=== PATIENT | female | born 1975 | race Caucasian/White ===

== ENCOUNTER → 2017-07-27 | Outpatient (CLI) | payer BC ==
[~2017-07-27] MED LIST: ACET-789 PO; ALPR0.25 PO; CHOL500049 PO; CNC1KV IJ; CYCL10TA9 PO; DOCU100C37 PO; GADOBUTROL 10 MMOL/10 ML (GADAVIST) VIAL IV ONE; HYDR200T46 PO; IBUP-1773 PO; IRON150C10 PO; LEVO75TA6 PO; LEVO88TA54 PO; LIOT5TAB3 PO; MAGN400T6 PO; NAPR-915 PO; NEBI5TAB8 PO; NFNEB10T PO; OXYC-465 PO; OXYC-471 PO; POTA-51 PO; SIME80TA16 PO
--- NOTE | 2017-07-27 10:16 | Diagnostic Imaging Report ---
PROCEDURE: MR imaging of the brain with and without contrast. TECHNIQUE: Multiplanar, multisequence MR imaging of the brain was performed with and without contrast. INDICATION: Headaches and forgetfulness for six months. COMPARISON: Comparison is made with prior MRI brain from 10/18/2015. FINDINGS: The ventricles and sulci are within normal limits. No diffusion restriction is seen. Normal expected flow-voids within the carotid siphons are seen. No acute intra-axial or extra-axial hemorrhage is detected. The corpus callosum is unremarkable. The sella and parasellar structures are unremarkable. No abnormal enhancement following contrast administration is seen. IMPRESSION: Unremarkable pre-and postcontrast MRI of the brain. Dictated by: Dictated on workstation # [id number]
== END ==
LOC: RAD 08:32
PROVIDERS: ATTEND Nurse Practitioner Family
DX: R51 Headache (principal); R41.3 Other amnesia; R20.2 Paresthesia of skin
CPT/HCPCS: 70553

== ENCOUNTER → 2018-02-16 | Outpatient (CLI) | payer BC ==
[~2018-02-16] MED LIST changes: -GADOBUTROL 10 MMOL/10 ML (GADAVIST) VIAL IV ONE
--- NOTE | 2018-02-16 14:05 | Diagnostic Imaging Report ---
PROCEDURE: US Renal Bilateral. TECHNIQUE: Multiple real-time grayscale images were obtained over the kidneys in various projections bilaterally. INDICATION: Flank pain. COMPARISON: There are no prior studies available for comparison. FINDINGS: Both kidneys were identified. The right kidney measures 9.6 x 4.8 x 5.5 cm while the left kidney is estimated to be 10.0 x 5.2 x 5.7 cm. There is no evidence for solid renal mass or for hydronephrosis of either kidney. However, there is a small 1.5 x 1.2 x 1.4 cm avascular hypoechoic lesion with some internal echoes within the left kidney. I suspect that this is a cyst which has been complicated by infection and/or hemorrhage. In reviewing the previous CT chest, abdomen, and pelvis exam of 12/22/2013, this finding was not clearly evident. The prior exam did note nonobstructive calculi within the left kidney. Those are not visualized with certainty on this exam. If further evaluation of the left kidney is desired, then repeat CT abdomen/pelvis exam would be recommended. There is no shadowing from the kidneys to suggest nephrolithiasis. The renal cortices are normal in thickness and echogenicity. The bladder was imaged during the course of the exam. The bladder is only partially filled and consequently not optimally evaluated. There is no obvious bladder abnormality evident. Both ureteral jets were noted. IMPRESSION: 1. There is no evidence for solid renal mass or for an acute abnormality of either kidney. 2. The small 1.5 x 1.2 x 1.4 cm complex hypoechoic lesion within the left kidney is probably a cyst which has been complicated by infection and/or hemorrhage. Recommendations as above. 3. The urinary bladder is grossly unremarkable. Dictated by: Dictated on workstation # [id number]
== END ==
LOC: RAD 11:19
PROVIDERS: ATTEND Nurse Practitioner Family
DX: N28.89 Other specified disorders of kidney and ureter (principal); R10.9 Unspecified abdominal pain
CPT/HCPCS: 76770

== ENCOUNTER → 2018-02-25 | Outpatient (CLI) | payer BC ==
[~2018-02-25] MED LIST changes: +IOHEXOL 350 MG/ML 100 ML (OMNIPAQUE 350) VIAL IV ONE; +NS 250 ML (IVPB) BAG IV ONE; +RECEIVED CONTRAST (Hold Metformin) IV SCH
--- NOTE | 2018-02-25 09:17 | Diagnostic Imaging Report ---
PROCEDURE: CT abdomen and pelvis with and without contrast. TECHNIQUE: Precontrast acquisitions were acquired through the abdomen and pelvis. Multiple contiguous axial images were obtained through the abdomen and pelvis after the administration of intravenous contrast. INDICATION: Fall last week and flank pain. Patient had abnormal renal ultrasound on 02/16/2018 demonstrating a left renal mass. The study is performed for further evaluation. Correlation is made with recent renal ultrasound from 02/16/2018. The lung bases are clear. The liver demonstrates diffuse low-density suggestive of hepatic steatosis. There appears to be hyperenhancing lesion in the right lobe of the liver near the dome measuring 9 mm in size. This was not definitely seen on prior CT from 2013. No other liver masses are identified. The gallbladder is unremarkable. The pancreas and spleen are unremarkable. No adrenal mass is detected. Bilateral nonobstructing renal calculi are seen. Largest calculus is in the lower pole left kidney measuring approximately 6 mm. No hydronephrosis is identified. Both kidneys contain multiple small circumscribed lesions which are too small to characterize but most likely represent cysts. The largest approximately 11 mm in the mid left kidney. It is difficult to determine if there is enhancement within this lesion, as the lesion is not visible on the precontrast images. The aorta is non-aneurysmal. No central retroperitoneal or mesenteric lymphadenopathy is seen. The small and large bowel loop are normal in caliber. There is no ascites. The partially filled urinary bladder is unremarkable. No pelvic lymphadenopathy is seen. IMPRESSION: 1. Hepatic steatosis. There is a 9 mm circumscribed enhancing lesion involving the right lobe of liver, not entirely characterized as benign or malignant. This does not have the typical features of a hemangioma. Close followup is recommended. Repeat CT in 3-6 months can be performed to confirm stability. 2. Bilateral nonobstructing nephrolithiasis. There are numerous tiny low densities in both kidneys, too small to characterize but most likely cysts. These can be followed as well to confirm stability. Dictated by: Dictated on workstation # [id number]
== END ==
LOC: RAD 08:07
PROVIDERS: ATTEND Nurse Practitioner Family
DX: K76.0 Fatty (change of) liver, not elsewhere classified (principal); N20.0 Calculus of kidney; N28.89 Other specified disorders of kidney and ureter; W19.XXXA Unspecified fall, initial encounter
CPT/HCPCS: 74178

== ENCOUNTER 2018-03-15 14:55 | Outpatient (CLI) | payer BC ==
[~2018-03-15] VITALS: Ht 162.6 cm; Wt 94.4 kg
[~2018-03-15 14:55] MED LIST changes: -IOHEXOL 350 MG/ML 100 ML (OMNIPAQUE 350) VIAL IV ONE; -NS 250 ML (IVPB) BAG IV ONE; -RECEIVED CONTRAST (Hold Metformin) IV SCH
[2018-03-15] MEDS ORDERED: METH5TAB86 PO (15:13)
[2018-03-15] MEDS ORDERED: ESZO2TAB31 PO (15:13)
[2018-03-15] MEDS ORDERED: BUSP10TA95 PO (15:13)
[2018-03-15] MEDS ORDERED: NAPR-1071 PO (15:13)
[2018-03-15] MEDS ORDERED: LEVO100T7 PO (15:13)
[2018-03-15] MEDS ORDERED: ESTR1TAB24 PO (15:13)
[2018-03-15] MEDS ORDERED: DICL100G31 TP (15:13)
[2018-03-15] MEDS ORDERED: PROG100C6 PO (15:13)
[2018-03-15] MEDS ORDERED: NFNEB10T PO (15:13)
[2018-03-15] MEDS ORDERED: GABA-488 PO (15:13)
[2018-03-15 15:16] VITALS: BP 152/94
[2018-03-15 16:06] LABS: BASOPHILS % (AUTO) 1 % (0-10); EOSINOPHILS # (AUTO) 0.1 10^3/uL (0.0-0.3); EOSINOPHILS % (AUTO) 1 % (0-10); HEMATOCRIT 38 % (35-52); HEMOGLOBIN 12.9 G/DL (11.5-16.0); LYMPHOCYTES # (AUTO) 1.7 X 10^3 (1.0-4.0); LYMPHOCYTES % (AUTO) 20 % (12-44); MEAN CORPUSCULAR HEMOGLOBIN 29 PG (25-34); MEAN CORPUSCULAR HGB CONC 34 G/DL (32-36); MEAN CORPUSCULAR VOLUME 86 FL (80-99); MEAN PLATELET VOLUME 9.7 FL (7.4-10.4); MONOCYTES # (AUTO) 0.7 X 10^3 (0.0-1.0); MONOCYTES % (AUTO) 9 % (0-12); NEUTROPHILS # (AUTO) 5.8 X 10^3 (1.8-7.8); NEUTROPHILS % (AUTO) 70 % (42-75); PLATELET COUNT 270 10^3/uL (130-400); WHITE BLOOD COUNT 8.4 10^3/uL (4.3-11.0)
[2018-03-15 16:23] LABS: BUN/CREATININE RATIO 14; CALCIUM 9.5 MG/DL (8.5-10.1); CARBON DIOXIDE 23 MMOL/L (21-32); CHLORIDE 101 MMOL/L (98-107); CREATININE SERUM 0.77 MG/DL (0.60-1.30); GFR ESTIMATED > 60; GLUCOSE 80 MG/DL (70-105); PHOSPHORUS 3.2 MG/DL (2.3-4.7); POTASSIUM 4.3 MMOL/L (3.6-5.0); SODIUM 136 MMOL/L (135-145); URIC ACID 4.4 MG/DL (2.6-7.2)
[2018-03-16] MEDS ORDERED: NITR-65 PO (12:05)
[2018-03-16] MEDS ORDERED: TAMS0.4C98 PO (12:05)
[2018-03-16] MEDS ORDERED: HYDR-3870 PO (12:05)
== END 2018-03-15 16:40 | disposition home or self-care (01) ==
LOC: PREOP 14:55
PROVIDERS: ATTEND Urology
DX: Z01.812 Encounter for preprocedural laboratory examination (principal); Z11.2 Encounter for screening for other bacterial diseases; N20.0 Calculus of kidney
CPT/HCPCS: 36415; 80048; 83970; 84100; 84550; 85025; 87081

== ENCOUNTER 2018-03-16 07:20 | Day surgery (SDC) | payer BC ==
[~2018-03-16] VITALS: Ht 162.6 cm; Wt 94.4 kg
[2018-03-16 07:20] VITALS: BP 158/94
[~2018-03-16 07:20] MED LIST changes: +BUSP10TA95 PO; +DICL100G31 TP; +ESTR1TAB24 PO; +ESZO2TAB31 PO; +GABA-488 PO; +LEVO100T7 PO; +METH5TAB86 PO; +NAPR-1071 PO; +PROG100C6 PO
[2018-03-16] MEDS ORDERED: LACTATED RINGERS 1,000 ML IV PRN (07:29)
[2018-03-16] MEDS ORDERED: cefTRIAXone FOR IV USE 1,000 MG in NS (IVPB) 50 ML IV ONE (07:30)
--- NOTE | 2018-03-16 08:59 | Progress Note-Pre Operative ---
Pre-Operative Progress Note H&P Reviewed The H&P was reviewed, patient examined and no changes noted. Date Seen by Provider: Mar 16, 2018 Time Seen by Provider: 08:58 Date H&P Reviewed: Mar 16, 2018 Time H&P Reviewed: 08:58 Pre-Operative Diagnosis: LT RENAL STONES MILAGROS KINCAID MD Mar 16, 2018 08:59
[2018-03-16] MEDS ORDERED: proPOfol 200 MG/20 ML (DIPRIVAN) VIAL IV ONE (10:03)
[2018-03-16] MEDS ORDERED: SEVOFLURANE (ULTANE) 15 ML INHAL SOLN ONE (10:03)
[2018-03-16] MEDS ORDERED: MIDAZOLAM 2 MG/2 ML (VERSED) VIAL ONE (10:03)
[2018-03-16] MEDS ORDERED: LIDOCAINE PF 2% 5 ML (XYLOCAINE) VIAL ONE (10:03)
[2018-03-16] MEDS ORDERED: fentaNYL INJECTION 100 MCG/2 ML AMP ONE (10:03)
--- NOTE | 2018-03-16 10:12 | Diagnostic Imaging Report ---
INDICATION: Bilateral renal stones. TECHNIQUE: Single supine view of the abdomen 7:57 AM. CORRELATION STUDY: 06/15/2015 FINDINGS: Nonobstructive appearing bowel gas pattern. Superior pole of the kidneys likely not included in the areas imaged. There are multiple calcifications over the bilateral renal silhouettes, left greater than right. Largest stone appears to be superimposed over the inferior pole of the left kidney at 7 mm in size. A definitive calcification along the expected course of either ureter does not appear to be suggested. IMPRESSION: 1. Likely incomplete visualization of the superior poles of the kidneys. Multiple calcifications of various sizes from a few millimeters up to 7 mm are present over both kidneys, left greater than right. Dictated by: Dictated on workstation # [id number]
--- NOTE | 2018-03-16 10:34 | Progress Note-Post Operative ---
Post-Operative Progess Note Surgeon (s)/Laboratory Mechanic Helper (s) Surgeon MILAGROS KINCAID MD Laboratory Mechanic Helper: NONE Pre-Operative Diagnosis LT RENAL STONES Post-Operative Diagnosis SAME Procedure & Operative Findings Date of Procedure 03/16/18 Procedure Performed/Findings LT ESWL Anesthesia Type GENERAL Estimated Blood Loss Estimated blood loss (mL): NONE Specimens/Packing Specimens Removed NONE Packing: NONE MILAGROS KINCAID MD Mar 16, 2018 10:34
--- NOTE | 2018-03-16 10:36 | Discharge Inst-Urology ---
Discharge Inst-Urology Discharge Medications New, Converted, or Re-newed RX: RX on Chart Patient Instructions/Follow Up Plan Please make appointment to been seen in office in 4 weeks. KUB prior to it KUB on way home Post ESWL instructions Increase oral fluids for 48 hours and then as needed. Diet and Activity as tolerated. If questions or concerns contact your physician Or seek help at emergency department. MILAGROS KINCAID MD Mar 16, 2018 10:36
[2018-03-16] MEDS ORDERED: DEXAMETHASONE 10 MG/ML (DECADRON) 1 ML VIAL ONE (10:51)
[2018-03-16] MEDS ORDERED: FUROSEMIDE 40 MG/4 ML INJ (LASIX) ONE (10:51)
[2018-03-16] MEDS ORDERED: ONDANSETRON 4 MG/2 ML (SDV) Z0FRAN ONE (10:51)
[2018-03-16] MEDS ORDERED: KETOROLAC 30 MG/ML VIAL ONE (10:51)
[2018-03-16] MEDS ORDERED: ONDANSETRON 4 MG/2 ML (SDV) Z0FRAN IVP PRN (11:15)
[2018-03-16] MEDS ORDERED: MEPERIDINE (DEMEROL) INJ 50 MG/ML IVP ONE (11:15)
[2018-03-16] MEDS ORDERED: morphine INJ 10 MG/ML 1ML (SYR OR VIAL) IVP ONE (11:15)
[2018-03-16 11:45] VITALS: BP 117/66
[2018-03-16] MEDS ORDERED: NITR-65 PO (12:05)
[2018-03-16] MEDS ORDERED: HYDR-3870 PO (12:05)
[2018-03-16] MEDS ORDERED: TAMS0.4C98 PO (12:05)
[2018-03-16 12:15] VITALS: BP 138/99
[2018-03-16 12:45] VITALS: BP 141/88
[2018-03-16 12:50] VITALS: BP 141/88
--- NOTE | 2018-03-16 13:52 | Diagnostic Imaging Report ---
INDICATION: Status post ESWL. COMPARISON: Earlier same day. FINDINGS: Two supine radiographic views of the abdomen were obtained. Bilateral nephrolithiasis is again identified. Calculi in the inferior pole of the left kidney do appear somewhat more amorphous when compared to earlier the same day. Otherwise, exam is essentially stable. No calculi are seen along the course of either ureter. Small bowel loops are nondistended. No unexpected radiopaque foreign bodies are seen. IMPRESSION: 1. Slightly more amorphous appearance to the calculi within the inferior pole of the left kidney, which may be on the basis of interval ESWL. 2. Otherwise, stable exam. Dictated by: Dictated on workstation # [id number]
--- NOTE | 2018-03-16 14:40 | Anesthesia-General Post-Op ---
General Patient Condition Mental Status/LOC: Same as Preop Cardiovascular: Satisfactory Nausea/Vomiting: Absent Respiratory: Satisfactory Pain: Controlled Complications: Absent Post Op Complications Complications None Follow Up Care/Instructions Patient Instructions None needed. Anesthesia/Patient Condition Patient Condition Patient is doing well, no complaints, stable vital signs, no apparent adverse anesthesia problems. No complications reported per nursing. ANABELA SCHMITT CRNA Mar 16, 2018 14:40
--- NOTE | 2018-03-16 15:35 | OPERATIVE REPORT ---
DATE OF SERVICE: 03/16/2018 PREOPERATIVE DIAGNOSIS: Left renal stones. POSTOPERATIVE DIAGNOSIS: Left renal stones. OPERATION PERFORMED: Left ESWL. SURGEON: Ar Kincaid MD ANESTHESIA: General. COMPLICATIONS: None. DESCRIPTION OF PROCEDURE: Under satisfactory general anesthesia, the patient in supine position on the ESWL table, we first localized the bigger lower pole stone. Delivered shocks at kV of 4, 1500 shocks seemed to have fragmented nicely the stone, then we moved on the upper pole stone and delivered 2000 shocks to completely fragment it. I went back to the lower stone and delivered 500 more shocks just to make sure that it is well fragmented. The patient tolerated the procedure and anesthesia well and was sent to recovery room in stable condition after receiving 40 mg of Lasix and 30 mg of Toradol IV. Job ID: [id number] DocumentID: [id number] Dictated Date: 03/16/2018 10:51:02 Bridge Ironworker Date: 03/16/2018 15:35:38 Dictated By: AR KINCAID MD
== END 2018-03-16 12:50 | disposition home or self-care (01) ==
LOC: SDC 07:20
PROVIDERS: ATTEND Urology
DX: N20.0 Calculus of kidney (principal); I10 Essential (primary) hypertension; Z79.899 Other long term (current) drug therapy
CPT/HCPCS: 74018

== ENCOUNTER → 2018-04-13 | Outpatient (CLI) | payer BC ==
[~2018-04-13] MED LIST changes: +HYDR-3870 PO; +NITR-65 PO; +TAMS0.4C98 PO
--- NOTE | 2018-04-13 13:38 | Diagnostic Imaging Report ---
INDICATION: Left renal stone status post lithotripsy. TIME OF EXAMINATION: 12:23 PM. COMPARISON: Correlation is made with prior radiographs from 03/16/2018. FINDINGS: Occasional punctate calcific densities overlie the left kidney, consistent with kidney stones. The overall stone burden involving the left kidney has significantly decreased. No definite ureteral calculi are seen. No calculi in the pelvis are identified. The right renal shadow is obscured by bowel gas. IMPRESSION: Left renal calculi. The overall stone burden has decreased since the prior abdominal radiograph from 03/16/2018. No definite ureteral calculi are detected. Dictated by: Dictated on workstation # [id number]
== END ==
LOC: RAD 11:42
PROVIDERS: ATTEND Urology
DX: N20.0 Calculus of kidney (principal)
CPT/HCPCS: 74018

== ENCOUNTER 2018-04-27 10:18 | Outpatient (RCR) | payer BC | END 2018-07-26 | disposition home or self-care (01) | LOC: LAB 10:18 | PROVIDERS: ATTEND Urology | DX: N20.0 Calculus of kidney (principal); Z98.890 Other specified postprocedural states | CPT/HCPCS: 36415; 82140; 82340; 82507; 82570; 83735; 83945; 83986; 84105; 84133; 84300; 84392; 84560; 88300 ==

== ENCOUNTER → 2018-05-25 | Outpatient (CLI) | payer BC ==
[~2018-05-25] MED LIST changes: +IOHEXOL 350 MG/ML 100 ML (OMNIPAQUE 350) VIAL IV ONE; +NS 100 ML (IVPB) BAG IV ONE; +RECEIVED CONTRAST (Hold Metformin) IV SCH
--- NOTE | 2018-05-25 10:43 | Diagnostic Imaging Report ---
PROCEDURE: CT abdomen and pelvis with and without contrast. TECHNIQUE: Precontrast acquisitions were acquired through the abdomen and pelvis. Multiple contiguous axial images were obtained through the abdomen and pelvis after the administration of intravenous contrast. INDICATION: Liver mass. COMPARISON: Comparison made with prior examination 02/25/2018. FINDINGS: The heart size is normal. Lung bases are clear. There is persistent fatty infiltration of the liver. There is an unchanged hyperenhancing 9 mm lesion in the dome of the liver. The gallbladder is unremarkable. There is no biliary duct dilatation. Spleen is normal. The pancreas and adrenal glands are unremarkable. There are multiple nonobstructing bilateral renal calculi. Aorta is nonaneurysmal. Bowel gas pattern is nonspecific. The appendix is normal. There is no free air. There is no ascites. There are no focal inflammatory changes. Bladder is normal. There is no pelvic mass, adenopathy or free fluid. There are mild degenerative changes in the lower lumbar spine. IMPRESSION: 1. Stable 9 mm hyperenhancing lesion in the dome of the liver likely atypical hemangioma. 2. No other acute abnormality in the abdomen or pelvis. 3. Multiple nonobstructing bilateral renal calculi. Dictated by: Dictated on workstation # [id number]
== END ==
LOC: RAD 08:50
PROVIDERS: ATTEND Nurse Practitioner Family
DX: K76.9 Liver disease, unspecified (principal); N20.0 Calculus of kidney
CPT/HCPCS: 74178

== ENCOUNTER 2018-10-08 15:58 | Emergency (ER) | payer BC ==
[~2018-10-08] VITALS: Ht 165.1 cm; Wt 86.2 kg
[~2018-10-08 15:58] MED LIST changes: -IOHEXOL 350 MG/ML 100 ML (OMNIPAQUE 350) VIAL IV ONE; -NS 100 ML (IVPB) BAG IV ONE; -RECEIVED CONTRAST (Hold Metformin) IV SCH
[2018-10-08] MEDS ORDERED: NS IV 1000 ML 1,000 ML ONE (16:33)
[2018-10-08] MEDS ORDERED: NS IV 1000 ML 1,000 ML IV ONE (16:36)
[2018-10-08] MEDS ORDERED: NS IV 1000 ML 1,000 ML IV STA (16:36)
[2018-10-08 16:44] LABS: BASOPHILS % (AUTO) 1 % (0-10); EOSINOPHILS # (AUTO) 0.2 10^3/uL (0.0-0.3); EOSINOPHILS % (AUTO) 4 % (0-10); HEMATOCRIT 36 % (35-52); HEMOGLOBIN 12.7 G/DL (11.5-16.0); LYMPHOCYTES # (AUTO) 1.6 X 10^3 (1.0-4.0); LYMPHOCYTES % (AUTO) 26 % (12-44); MEAN CORPUSCULAR HEMOGLOBIN 29 PG (25-34); MEAN CORPUSCULAR HGB CONC 35 G/DL (32-36); MEAN CORPUSCULAR VOLUME 83 FL (80-99); MEAN PLATELET VOLUME 9.1 FL (7.4-10.4); MONOCYTES # (AUTO) 0.5 X 10^3 (0.0-1.0); MONOCYTES % (AUTO) 9 % (0-12); NEUTROPHILS # (AUTO) 3.8 X 10^3 (1.8-7.8); NEUTROPHILS % (AUTO) 61 % (42-75); PLATELET COUNT 259 10^3/uL (130-400); WHITE BLOOD COUNT 6.2 10^3/uL (4.3-11.0)
[2018-10-08] MEDS ORDERED: ONDANSETRON 4 MG/2 ML (SDV) Z0FRAN IVP ONE (16:45)
[2018-10-08 16:58] LABS: ALANINE AMINOTRANSFERASE 40 U/L (0-55); ALBUMIN 4.2 GM/DL (3.2-4.5); ALKALINE PHOSPHATASE 69 U/L (40-136); BILIRUBIN,TOTAL 0.6 MG/DL (0.1-1.0); BUN/CREATININE RATIO 11; CALCIUM 9.4 MG/DL (8.5-10.1); CARBON DIOXIDE 27 MMOL/L (21-32); CHLORIDE 105 MMOL/L (98-107); CREATININE SERUM 0.92 MG/DL (0.60-1.30); GFR ESTIMATED > 60; GLUCOSE 98 MG/DL (70-105); MAGNESIUM 1.7 MG/DL (1.8-2.4); POTASSIUM 3.7 MMOL/L (3.6-5.0); SODIUM 141 MMOL/L (135-145); TOTAL PROTEIN 7.2 GM/DL (6.4-8.2)
[2018-10-08] MEDS ORDERED: NS 100 ML (IVPB) BAG IV ONE (17:00)
[2018-10-08] MEDS ORDERED: CATHETER FLUSH 10 ML SYR IV PRN (17:00)
[2018-10-08] MEDS ORDERED: IOHEXOL 350 MG/ML 100 ML (OMNIPAQUE 350) VIAL IV ONE (17:00)
[2018-10-08] MEDS ORDERED: HOLD METFORMIN - RECEIVED CONTRAST 20 ML VIAL IV SCH (17:00)
--- NOTE | 2018-10-08 17:05 | ED Abdominal Pain ---
General Chief Complaint: Abdominal/GI Problems Stated Complaint: ABD PAIN,VOMITING Nursing Triage Note: Pt. advises abdominal pain and diarrhea since thursday. She advises that she saw her regular doctor on thursday and was given antibiotics and nausea medication. She states right upper and lower quadrant abdominal pain has become progressively worse. Sepsis Screen: No Definite Risk Source of Information: Patient Exam Limitations: No Limitations (SOFIA CONWAY MD) History of Present Illness Date Seen by Provider: Oct 08, 2018 Time Seen by Provider: 16:30 Initial Comments Here with report of right-sided abdominal pain associated with diarrhea since Thursday. Onset after eating a Thursday morning for breakfast. Has been persistent since. She was seen by her provider who went ahead and initiated treatment for possible salmonella due to eating unwashed [employer] fresh eggs. Denies fever. Denies bloody diarrhea. Denies dysuria. Pain much worse today after eating a taco for lunch. She states anytime she eats anything at a spicy at all it sets it off again. Timing/Duration: 4-5 Days Severity/Quality: Moderate, Cramping Location: RUQ, RLQ Radiation: Other (generalized abdomen) Activities at Onset: None Modifying Factors: Improves With Defecating; Worsens With Eating Associated Symptoms: No Back Pain, No Chest Pain, No Fever/Chills; Nausea/Vomiting; No Shortness of Air (SOFIA CONWAY MD) Allergies and Home Medications Allergies Coded Allergies: codeine (Verified Allergy, Severe, RASH, Pt has received Morphine & Lortab in the past, 10/08/18) Home Medications Buspirone HCl 10 Mg Tablet, 10 MG PO BID, (Reported) Cholecalciferol (Vitamin D3) 50,000 Unit Capsule, 50,000 UNIT PO twice weekly, (Reported) take on Thursday and Thursday Cyanocobalamin 1,000 Mcg/Ml Inj, 1,000 MCG IJ TWICE A WEEK, (Reported) take on Thursday and Thursday Diclofenac Sodium 100 Gm Gel..gram., 100 GM TP PRN, (Reported) Estradiol 1 Mg Tablet, 2 MG PO DAILY, (Reported) Eszopiclone 2 Mg Tablet, 2 MG PO DAILY, (Reported) Gabapentin 300 Mg Capsule, 300 MG PO BID, (Reported) Hydrocodone/Acetaminophen 1 Each Tablet, 1-2 EACH PO Q6H PRN for PAIN-MODERATE Prescribed by: MERCEDES QUAN on 03/16/18 1205 Hydroxychloroquine Sulfate 200 Mg Tablet, 200 MG PO BID, (Reported) Levothyroxine Sodium 100 Mcg Tablet, 100 MCG PO DAILY, (Reported) Magnesium Oxide 400 Mg Tablet, 400 MG PO DAILY, (Reported) Methylphenidate HCl 5 Mg Tablet, 5 MG PO BID, (Reported) Naproxen 500 Mg Tablet, 500 MG PO BID, (Reported) Nebivolol HCl 10 Mg Tab, 10 MG PO DAILY, (Reported) Nitrofurantoin Monohyd/M-Cryst 100 Mg Capsule, 1 TAB PO BID Prescribed by: MERCEDES QUAN on 03/16/18 1205 Potassium Chloride 20 Meq Tablet.er, 20 MEQ PO DAILY, (Reported) Progesterone,Micronized 100 Mg Capsule, 100 MG PO DAILY, (Reported) Tamsulosin HCl 0.4 Mg Cap, 0.4 MG PO DAILY Prescribed by: MERCEDES QUAN on 03/16/18 1205 Patient Home Medication List Home Medication List Reviewed: Yes (SOFIA CONWAY MD) Review of Systems Review of Systems Constitutional: see HPI EENTM: No Symptoms Reported Respiratory: No Symptoms Reported Cardiovascular: No Symptoms Reported Gastrointestinal: See HPI, Abdominal Pain, Diarrhea, Nausea, Vomiting Genitourinary: No Symptoms Reported Musculoskeletal: no symptoms reported Skin: no symptoms reported Psychiatric/Neurological: No Symptoms Reported (SOFIA COWNAY MD) All Other Systems Reviewed Negative Unless Noted: Yes (SOFIA CONWAY MD) Past Lrgkdbi-Pqvbsu-Nylyna Hx Past Med/Social Hx: Reviewed Nursing Past Med/Soc Hx (SOFIA CONWAY MD) Patient Social History Alcohol Use: Denies Use Recreational Drug Use: No Smoking Status: Never a Smoker Recent Foreign Travel: No Contact w/Someone Who Travel: No Recent Infectious Disease Expo: No Recent Hopitalizations: No (SOFIA CONWAY MD) Immunizations Up To Date Tetanus Booster (TDap): Unknown (SOFIA CONWAY MD) Seasonal Allergies Seasonal Allergies: No (SOFIA CONWAY MD) Past Medical History Surgeries: Yes (D&C) Section, Hysterectomy, Oophorectomy Respiratory: No Asthma Cardiac: Yes Heart Murmur, Hypertension Neurological: No Reproductive Disorders: No Female Reproductive Disorders: Menstrual Problems 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 Sexually Transmitted Disease: No HIV/AIDS: No Kidney Stones Gastrointestinal: Yes (CELIAC DISEASE) Musculoskeletal: Yes Arthritis, Rheumatoid Arthritis, Chronic Back Pain Endocrine: Yes (BEN) Loss of Vision: Bilateral Hearing Impairment: Denies Cancer: No Psychosocial: Yes Anxiety Integumentary: No Blood Disorders: No (HX ANEMIA) Adverse Reaction/Blood Tranf: No (N/A) (SFOIA CONWAY MD) Family Medical History Reviewed Nursing Family Hx (SOFIA CONWAY MD) Arthritis 19 MOTHER grandparents Cataracts 19 MOTHER Dementia grandparents Hypertension 19 MOTHER Thyroid disease 19 MOTHER Physical Exam Vital Signs Vital Signs - First Documented 10/08/18 16:27 Temp 98.8 Pulse 84 Resp 14 B/P (MAP) 150/93 (112) O2 Delivery Room Air (FORD JAEGER) Vital Signs Capillary Refill : Less Than 3 Seconds (SOFIA CONWAY MD) Height/Weight/BMI Height: 5'5.00" Weight: 190lbs. 3.0oz. 86.240481sm; 35.7 BMI Method:Stated General Appearance: WD/WN, no apparent distress HEENT: PERRL/EOMI, pharynx normal Neck: full range of motion, supple Respiratory: lungs clear, normal breath sounds Cardiovascular: regular rate, rhythm, no murmur Peripheral Pulses: 2+ Dorsalis Pedis (R), 2+ Left Dors-Pedis (L), 2+ Radial Pulses (R), 2+ Radial Pulses (L) Gastrointestinal: soft, tenderness (right lower quadrant and to a lesser extent right upper quadrant) Extremities: non-tender, normal inspection Back: normal inspection, no CVA tenderness, no vertebral tenderness Neurologic/Psychiatric: alert, oriented x 3 Skin: normal color, warm/dry (SOFIA CONWAY MD) Progress/Results/Core Measures Results/Orders Lab Results Laboratory Tests Test 10/08/18 16:35 10/08/18 17:16 Range/Units White Blood Count 6.2 4.3-11.0 10^3/uL Red Blood Count 4.39 4.35-5.85 10^6/uL Hemoglobin 12.7 11.5-16.0 G/DL Hematocrit 36 35-52 % Mean Corpuscular Volume 83 80-99 FL Mean Corpuscular Hemoglobin 29 25-34 PG Mean Corpuscular Hemoglobin Concent 35 32-36 G/DL Red Cell Distribution Width 14.0 10.0-14.5 % Platelet Count 259 130-400 10^3/uL Mean Platelet Volume 9.1 7.4-10.4 FL Neutrophils (%) (Auto) 61 42-75 % Lymphocytes (%) (Auto) 26 12-44 % Monocytes (%) (Auto) 9 0-12 % Eosinophils (%) (Auto) 4 0-10 % Basophils (%) (Auto) 1 0-10 % Neutrophils # (Auto) 3.8 1.8-7.8 X 10^3 Lymphocytes # (Auto) 1.6 1.0-4.0 X 10^3 Monocytes # (Auto) 0.5 0.0-1.0 X 10^3 Eosinophils # (Auto) 0.2 0.0-0.3 10^3/uL Basophils # (Auto) 0.0 0.0-0.1 10^3/uL Sodium Level 141 135-145 MMOL/L Potassium Level 3.7 3.6-5.0 MMOL/L Chloride Level 105 98-107 MMOL/L Carbon Dioxide Level 27 21-32 MMOL/L Anion Gap 9 5-14 MMOL/L Blood Urea Nitrogen 10 7-18 MG/DL Creatinine 0.92 0.60-1.30 MG/DL Estimat Glomerular Filtration Rate > 60 BUN/Creatinine Ratio 11 Glucose Level 98 70-105 MG/DL Calcium Level 9.4 8.5-10.1 MG/DL Corrected Calcium 9.2 8.5-10.1 MG/DL Magnesium Level 1.7 L 1.8-2.4 MG/DL Total Bilirubin 0.6 0.1-1.0 MG/DL Aspartate Amino Transf (AST/SGOT) 30 5-34 U/L Alanine Aminotransferase (ALT/SGPT) 40 0-55 U/L Alkaline Phosphatase 69 40-136 U/L C-Reactive Protein High Sensitivity 0.48 0.00-0.50 MG/DL Total Protein 7.2 6.4-8.2 GM/DL Albumin 4.2 3.2-4.5 GM/DL Urine Color YELLOW Urine Clarity CLEAR Urine pH 6 5-9 Urine Specific [place] 1.025 H 1.016-1.022 Urine Protein 2+ H NEGATIVE Urine Glucose (UA) NEGATIVE NEGATIVE Urine Ketones 1+ H NEGATIVE Urine Nitrite NEGATIVE NEGATIVE Urine Bilirubin NEGATIVE NEGATIVE Urine Urobilinogen 1 NORMAL MG/DL Urine Leukocyte Esterase 1+ H NEGATIVE Urine RBC (Auto) NEGATIVE NEGATIVE Urine RBC RARE /HPF Urine WBC RARE /HPF Urine Squamous Epithelial Cells 5-10 /HPF Urine Crystals PRESENT H /LPF Urine Calcium Oxalate Crystals RARE H /LPF Urine Bacteria FEW H /HPF Urine Casts NONE /LPF Urine Mucus MODERATE H /LPF Urine Culture Indicated NO (FORD JAEGER) Medications Given in ED Current Medications Medications Dose Ordered Sig/Garima Route Start Time Stop Time Status Last Admin Dose Admin Iohexol 100 ml ONCE ONCE IV 10/08/18 17:00 10/08/18 17:01 DC 10/08/18 17:31 100 ML Ondansetron HCl 4 mg ONCE ONCE IVP 10/08/18 16:45 10/08/18 16:46 DC 10/08/18 16:42 4 MG Sodium Chloride 10 ml NEEDED PRN IV 10/08/18 17:00 10/08/18 17:31 10 ML Sodium Chloride 100 ml ONCE ONCE IV 10/08/18 17:00 10/08/18 17:01 DC 10/08/18 17:31 80 ML Sodium Chloride 1,000 ml @ 0 mls/hr Q0M ONCE IV 10/08/18 16:36 10/08/18 16:39 DC 10/08/18 18:40 1,000 MLS/HR (FORD JAEGER) Vital Signs/I&O 10/08/18 16:27 Temp 98.8 Pulse 84 Resp 14 B/P (MAP) 150/93 (112) O2 Delivery Room Air (FORD JAEGER) Blood Pressure Mean: 112 Progress Progress Note : Progress Note Seen and evaluated. IV, labs, UA, normal saline 1 L bolus, Zofran 4 mg IV, CT abdomen pelvis ordered. Monitor patient. (SOFIA OCNWAY MD) Diagnostic Imaging Diagonstic Imaging: CT (IV contrast) Plain Films/CT/US/NM/MRI: abdomen, pelvis Comments NAME: TIFFANY ESCALANTE [facility] REC#: [id number] PT STATUS: REG ER : 1975 PHYSICIAN: SOFIA CONWAY MD ADMIT DATE: 10/08/18/ER Draft Date of Exam:10/08/18 CT ABDOMEN/PELVIS W EXAMINATION: CT abdomen and pelvis with contrast from 10/08/2018. TECHNIQUE: Multiple contiguous axial images were obtained through the abdomen and pelvis after administration of intravenous contrast. Auto Exposure Controls were utilized during the CT exam to meet ALARA standards for radiation dose reduction. INDICATION: Nausea, vomiting, diarrhea for five days. Right-sided abdominal pain. History of hysterectomy and x3. COMPARISON: 05/25/2018. FINDINGS: The lung bases are unremarkable. Liver demonstrates diffuse fatty infiltration. There is a rounded subcentimeter hyperdensity in the periphery of the right lobe on image #13/94, nonspecific. Very tiny flash-filling hemangioma is possible, similar findings seen in the dome. Gallbladder is unremarkable. Spleen, adrenal glands, and pancreas are unremarkable. Kidneys demonstrate no acute abnormality. Bilateral renal stones, nonobstructive in appearance, are also noted. No hydronephrosis. again but could be due to underdistention. Correlate clinically for any symptoms of cystitis which can cause a similar appearance. There is no free fluid or air in the abdomen nor pelvis. No inflammation is seen about the bowel loops. Appendix is not seen but no inflammation seen in the right lower quadrant. There is no acute osseous abnormality. IMPRESSION: 1. Diffuse fatty infiltration throughout the liver with a few subcentimeter hyperdensities noted in the right lobe, nonspecific. Dedicated nonemergent liver protocol CT could further characterize and follow these findings. 2. Other incidental findings, no acute process in the abdomen nor pelvis at this time. Dictated on workstation # [id number] Dict: 10/08/18 1735 Trans: 10/08/18 1846 [id number] Interpreted by: MATT CHUNG MD Electronically signed by: Reviewed: Reviewed by Me (FORD JAEGER) Departure Impression Primary Impression: Gastroenteritis/colitis, infectious Disposition: 01 HOME, SELF-CARE Condition: Stable Departure-Patient Inst. Decision time for Depature: 18:50 (FORD JAEGER) Referrals: SIMI KAPLAN DO (PCP) Primary Care Physician KAPLAN,KO L HEBREW CANTOR, DNP (Family) Primary Care Physician Patient Instructions: Colitis (DC) Add. Discharge Instructions: You may continue your antibiotics. Push plenty of fluids and stick to a liquid diet. Advance it as you tolerated. Avoid dairy and meat spicy food. Expect your bowels to heal and improve over the next week. Follow-up with primary care if needed. If you have intractable pain nausea vomiting or other worrisome symptoms please return to the ER. All discharge instructions reviewed with patient and/or family. Voiced un derstanding. SOFIA CONWAY MD Oct 08, 2018 17:05 FORD JAEGER Oct 08, 2018 18:51
[2018-10-08 17:26] LABS: BILIRUBIN,URINE NEGATIVE (NEGATIVE); CLARITY,URINE CLEAR; COLOR,URINE YELLOW; GLUCOSE, URINE (UA) NEGATIVE (NEGATIVE); KETONES,URINE 1+ (NEGATIVE); LEUKOCYTE ESTERASE ,URINE 1+ (NEGATIVE); NITRITE,URINE NEGATIVE (NEGATIVE); PH,URINE 6 (5-9); PROTEIN,URINE 2+ (NEGATIVE); UROBILINOGEN,URINE 1 MG/DL (NORMAL)
[2018-10-08 17:31] LABS: BACTERIA,URINE FEW /HPF; CALCIUM OXALATE CRYSTALS,UR RARE /LPF; RBC,URINE RARE /HPF; WBC,URINE RARE /HPF
--- NOTE | 2018-10-08 18:46 | Diagnostic Imaging Report ---
INDICATION: Nausea, vomiting and diarrhea for five days. Right-sided abdominal pain. History of hysterectomy and x 3. EXAMINATION: CT abdomen and pelvis with contrast, 10/08/2018. COMPARISON: 05/25/2018. FINDINGS: The lung bases are unremarkable. Liver demonstrates diffuse fatty infiltration. There is a rounded subcentimeter hyperdensity in the periphery of the right lobe on image #13/94, nonspecific. Very tiny flash-filling hemangioma is possible, similar findings seen in the dome. Gallbladder is unremarkable. Spleen, adrenal glands, and pancreas are unremarkable. Kidneys demonstrate no acute abnormality. Bilateral renal stones, nonobstructive in appearance, are also noted. No hydronephrosis. Bladder wall slightly thickened could be due to underdistention. Correlate clinically for any symptoms of cystitis which can cause a similar appearance. There is no free fluid or air in the abdomen nor pelvis. No inflammation is seen about the bowel loops. Appendix is not seen but no inflammation seen in the right lower quadrant. There is no acute osseous abnormality. IMPRESSION: 1. Diffuse fatty infiltration throughout the liver with a few subcentimeter hyperdensities noted in the right lobe, nonspecific. Dedicated nonemergent liver protocol CT could further characterize and follow these findings. 2. Other incidental findings, no acute process in the abdomen or pelvis at this time. Dictated by: Dictated on workstation # [id number]
[2018-10-08 18:58] VITALS: BP 142/86
== END 2018-10-08 18:58 | disposition home or self-care (01) ==
LOC: EDUNIT# 15:58 → ER 16:00
DX: A09 Infectious gastroenteritis and colitis, unspecified (principal); J45.909 Unspecified asthma, uncomplicated; I10 Essential (primary) hypertension; M06.9 Rheumatoid arthritis, unspecified; F41.9 Anxiety disorder, unspecified; Z87.442 Personal history of urinary calculi; Z90.710 Acquired absence of both cervix and uterus; Z88.5 Allergy status to narcotic agent; Z82.49 Family history of ischemic heart disease and other diseases of the circulatory system
CPT/HCPCS: 36415; 74177; 80053; 81000; 83735; 85025; 86141; 96361; 96374

== ENCOUNTER → 2019-02-08 | Outpatient (CLI) | payer BC ==
[~2019-02-08] MED LIST changes: +CATHETER FLUSH 10 ML SYR IV PRN; +HOLD METFORMIN - RECEIVED CONTRAST 20 ML VIAL IV SCH; +IOHEXOL 350 MG/ML 100 ML (OMNIPAQUE 350) VIAL IV ONE; +LIOT5TAB PO; -LIOT5TAB3 PO; +NS 100 ML (IVPB) BAG IV ONE; +PROG100C11 PO; -PROG100C6 PO
--- NOTE | 2019-02-08 12:51 | Diagnostic Imaging Report ---
EXAMINATION: CT Abdomen with and without intravenous contrast and Pelvis with intravenous contrast. TECHNIQUE: Multiple contiguous axial images were obtained through the abdomen without contrast and then through the abdomen and pelvis after the uneventful administration of intravenous contrast. All CT scans use one or more of the following dose optimizing techniques: automated exposure control, MA and/or KvP adjustment based on a patient size and exam type, or iterative reconstruction. HISTORY: LIVER MASS COMPARISON: None available. FINDINGS: Limited views of the lower thorax are unremarkable. The liver is moderately steatotic but there is no focal lesion. Abnormalities on prior exam are likely related to areas of sparing of steatosis. There is no biliary ductal dilation. Gallbladder is normal. Pancreas is normal. Spleen is normal. Adrenal glands are normal. The kidneys are normal with the exception of a few simple cysts. There is no hydronephrosis. Urinary bladder is normal. There are no dilated loops of large or small bowel. No obstruction or inflammation. No free fluid or air. No abdominal or pelvic lymphadenopathy. Aorta is normal in caliber without aneurysm. There are no suspicious osseous lesions. IMPRESSION: 1. Moderate hepatic steatosis without focal lesion. Abnormalities on prior exam are likely related to areas of sparing of steatosis. Dictated by: Dictated on workstation # [id number]
== END ==
LOC: RAD 11:40
PROVIDERS: ATTEND Nurse Practitioner Family
DX: K76.0 Fatty (change of) liver, not elsewhere classified (principal)
CPT/HCPCS: 74177

== ENCOUNTER 2019-05-05 10:10 | Outpatient (CLI) | payer BC ==
[~2019-05-05] VITALS: Ht 165.1 cm; Wt 86.2 kg
[~2019-05-05 10:10] MED LIST changes: -CATHETER FLUSH 10 ML SYR IV PRN; -HOLD METFORMIN - RECEIVED CONTRAST 20 ML VIAL IV SCH; -IOHEXOL 350 MG/ML 100 ML (OMNIPAQUE 350) VIAL IV ONE; -LIOT5TAB PO; +LIOT5TAB10 PO; -MAGN400T6 PO; +MAGN400T8 PO; -NS 100 ML (IVPB) BAG IV ONE; -TAMS0.4C98 PO; +TMSL.4C PO
[2019-05-05] MEDS ORDERED: LACTATED RINGERS 2,000 ML IV SCH (10:30)
[2019-05-05] MEDS ORDERED: ONDANSETRON 4 MG/2 ML (SDV) Z0FRAN IV PRN (10:30)
[2019-05-05] MEDS ORDERED: LACTATED RINGERS 2,000 ML IV ONE (10:32)
[2019-05-05 10:35] LABS: HEMOGLOBIN 13.2 G/DL (11.5-16.0); MEAN PLATELET VOLUME 9.3 FL (7.4-10.4); RED CELL DISTRIBUTION WIDTH 14.2 % (10.0-14.5)
[2019-05-05 11:01] LABS: ALANINE AMINOTRANSFERASE 21 U/L (0-55); ALBUMIN 4.3 GM/DL (3.2-4.5); ALKALINE PHOSPHATASE 57 U/L (40-136); BILIRUBIN,TOTAL 0.2 MG/DL (0.1-1.0); BUN/CREATININE RATIO 17; CALCIUM 9.4 MG/DL (8.5-10.1); CARBON DIOXIDE 24 MMOL/L (21-32); CHLORIDE 103 MMOL/L (98-107); CREATININE SERUM 0.89 MG/DL (0.60-1.30); GFR ESTIMATED > 60; GLUCOSE 117 MG/DL (70-105); POTASSIUM 3.5 MMOL/L (3.6-5.0); SODIUM 138 MMOL/L (135-145); TOTAL PROTEIN 7.6 GM/DL (6.4-8.2)
[2019-05-05 12:42] VITALS: BP 185/101
== END 2019-05-05 12:42 | disposition home or self-care (01) ==
LOC: SDC 10:10
PROVIDERS: ATTEND Nurse Practitioner Family
DX: E86.0 Dehydration (principal)
CPT/HCPCS: 36415; 80053; 85027; 96360; 96361

== ENCOUNTER → 2020-11-12 | Outpatient (CLI) | payer BC ==
[~2020-11-12] MED LIST changes: +DICL100G13 TP; -DICL100G31 TP; -OXYC-465 PO; -OXYC-471 PO; +OXYC-556 PO; +OXYC1TAB11 PO
[2020-11-12 12:17] LABS: BASOPHILS # (AUTO) 0.1 10^3/uL (0.0-0.1); BASOPHILS % (AUTO) 0 % (0-10); EOSINOPHILS % (AUTO) 0 % (0-10); HEMATOCRIT 40 % (35-52); HEMOGLOBIN 13.5 g/dL (11.5-16.0); LYMPHOCYTES # (AUTO) 1.1 10^3/uL (1.0-4.0); LYMPHOCYTES % (AUTO) 10 % (12-44); MEAN CORPUSCULAR HEMOGLOBIN 29 pg (25-34); MEAN CORPUSCULAR HGB CONC 34 g/dL (32-36); MEAN CORPUSCULAR VOLUME 86 fL (80-99); MEAN PLATELET VOLUME 9.4 fL (9.0-12.2); MONOCYTES # (AUTO) 0.3 10^3/uL (0.0-1.0); MONOCYTES % (AUTO) 3 % (0-12); NEUTROPHILS # (AUTO) 9.8 10^3/uL (1.8-7.8); NEUTROPHILS % (AUTO) 86 % (42-75); PLATELET COUNT 250 10^3/uL (130-400); WHITE BLOOD COUNT 11.3 10^3/uL (4.3-11.0)
--- NOTE | 2020-11-12 12:33 | Diagnostic Imaging Report ---
INDICATION: Choking sensation, shortness of breath. COMPARISON: None. FINDINGS: Frontal and lateral views of the chest demonstrate clear lungs bilaterally. The heart is normal. There is no pneumothorax but osseous structures are stable. IMPRESSION: Negative chest. Dictated by: Dictated on workstation # [id number]
[2020-11-12 12:35] LABS: ALBUMIN 4.2 GM/DL (3.2-4.5); POTASSIUM 3.9 MMOL/L (3.6-5.0)
[2020-11-12 12:37] LABS: CALCIUM 9.4 MG/DL (8.5-10.1)
[2020-11-12 12:38] LABS: TOTAL PROTEIN 7.2 GM/DL (6.4-8.2)
[2020-11-12 12:40] LABS: BILIRUBIN,TOTAL 0.8 MG/DL (0.1-1.0)
[2020-11-12 12:41] LABS: CREATININE SERUM 0.93 MG/DL (0.60-1.30)
[2020-11-12 12:56] LABS: ERYTHROCYTE SEDIMENTATION RATE 10 MM/HR (0-20)
--- NOTE | 2020-11-12 13:03 | Diagnostic Imaging Report ---
CLINICAL INDICATION: Patient with swollen neck and tongue x1 month. Patient on steroids for three weeks. EXAM: Axial CT scan of the neck soft tissue performed without IV contrast. Sagittal and coronal reformatted images were created. COMPARISON: CT scan of the cervical spine without contrast dated 12/22/2013. FINDINGS: There is mild prominence of the right side of the tongue compared to the left side. There is no measurable mass seen. This portion of the tongue was not imaged on the prior study. There is no significant prominence of the posterior or base of the tongue, and the aerodigestive tract is patent. The nasopharynx, oropharynx, hypopharynx, and laryngeal soft tissue structures are unremarkable. There is no lymphadenopathy. Salivary glands are unremarkable. The thyroid gland is small in size. Visualized upper lung leone are clear. There is cervical spine degenerative disease with vertebral body spurs and facet arthropathy. There is loss of cervical lordosis. Limited visualization of the intracranial structures is unremarkable. Visualized paranasal sinuses and mastoid air cells are clear. IMPRESSION: 1: There is mild prominence of the right side of the tongue compared to the left side. There is no measurable mass seen. The posterior aspect of the tongue and tongue base is not enlarged, and the aerodigestive tract is patent. There is no lymphadenopathy. 2: Besides cervical spine degenerative disease, the remainder of this exam shows no significant abnormality. Dictated by: Dictated on workstation # [id number]
[2020-11-12 13:22] LABS: BAND NEUTROPHILS 1 %; BASOPHILS % (MANUAL) 0 %; EOSINOPHILS % (MANUAL) 0 %; LYMPHOCYTES % (MANUAL) 6 %; MONOCYTES % (MANUAL) 1 %; NEUTROPHILS % (MANUAL) 92 %; RBC MORPH NORMAL
== END ==
LOC: RAD 11:38
PROVIDERS: ATTEND Nurse Practitioner Family
DX: M47.812 Spondylosis without myelopathy or radiculopathy, cervical region (principal); R06.00 Dyspnea, unspecified; R06.02 Shortness of breath; R09.89 Other specified symptoms and signs involving the circulatory and respiratory systems
CPT/HCPCS: 36415; 70490; 71046; 80053; 85007; 85027; 85379; 85652; 87420

== ENCOUNTER 2022-04-25 08:51 | Emergency (ER) | payer BC ==
[~2022-04-25] VITALS: Ht 165 cm; Wt 82.0 kg
[~2022-04-25 08:51] MED LIST changes: +CYCL10TA25 PO; -CYCL10TA9 PO; -MAGN400T8 PO; +MGX400T PO
--- NOTE | 2022-04-25 09:21 | ED General ---
General Chief Complaint: COVID19 Suspect/Confirmed Stated Complaint: COVID + ON HOME TEST Nursing Triage Note: PT AMB TO RM 10 PT STATES TESTED + FOR COVID THIS AM. STATES HAS BEEN SICK W SINUS TYPE ILLNESS SINCE THURSDAY. PT DENIES FEVER, N/V/D. PT HAS LOSS TASTE AND SMELL, PERSISTANT COUGH, SOA. Source of Information: Patient Exam Limitations: No Limitations History of Present Illness Date Seen by Provider: Apr 25, 2022 Time Seen by Provider: 09:01 Initial Comments This 46-year-old young lady presents to the emergency room with a positive home COVID-19 test and symptoms of congestion, shortness of breath, choking sensation, cough, mild sore throat, and hypertension. She took Bystolic around 0800. She has been taking a Sinex esdo-vbb-hicoxox medication containing phenylephrine which is likely contributing to her significant hypertension. Oxygen saturation is 100% and she does not appear in respiratory distress. She has comorbidities of BMI 30, rheumatoid arthritis, and hypothyroidism. She is due for her thyroid studies. She is on her third day of symptoms. She has had COVID previously and did well on Paxlovid. She had tested positive for COVID-19 March 24. This calls into question the positive COVID test at home since it was within the past month. She may still have lingering antigens and RNA withou t active infection. She has rheumatoid arthritis but does not take any immunomodulating medication. She took Plaquenil but stopped about 6 months ago. Allergies and Home Medications Allergies Coded Allergies: codeine (Verified Allergy, Severe, RASH, Pt has received Morphine & Lortab in the past, 10/08/18) Patient Home Medication List Home Medication List Reviewed: Yes Amoxicillin (Amoxicillin) 500 Mg Capsule, 1,000 MG PO BID Prescribed by: EV JAVIER on 04/25/22 1221 Buspirone HCl (Buspirone HCl) 10 Mg Tablet, 10 MG PO BID, (Reported) Entered as Reported by: CHELSEA CORDOVA on 03/15/18 1513 Cholecalciferol (Vitamin D3) (Vitamin D) 50,000 Unit Capsule, 50,000 UNIT PO twice weekly, (Reported) Entered as Reported by: CHELSEA CORDOVA on 07/24/15 1108 Cyanocobalamin (Cyanocobalamin Injection) 1,000 Mcg/Ml Inj, 1,000 MCG IJ TWICE A WEEK, (Reported) Entered as Reported by: CHELSEA CORDOVA on 07/24/15 110 Diclofenac Sodium (Diclofenac Sodium) 100 Gm Gel..gram., 100 GM TP PRN, (Reported) Entered as Reported by: CHELSEA CORDOVA on 03/15/18 151 Estradiol (Estradiol Tablet) 1 Mg Tablet, 2 MG PO DAILY, (Reported) Entered as Reported by: CHELSEA CORDOVA on 03/15/18 151 Eszopiclone (Eszopiclone) 2 Mg Tablet, 2 MG PO DAILY, (Reported) Entered as Reported by: CHELSEA CORDOVA on 03/15/18 151 Fluticasone Propionate (Flonase Allergy Relief) 50 Mcg/Actuation Burchard.susp, 2 SPRAY NSEACH BID Prescribed by: EV JAVIER on 04/25/22 1221 Gabapentin (Gabapentin) 300 Mg Capsule, 300 MG PO BID, (Reported) Entered as Reported by: CHELSEA CORDOVA on 03/15/18 151 Hydrocodone/Acetaminophen (Lorcet 5-325 mg Tablet) 1 Each Tablet, 1-2 EACH PO Q6H PRN for PAIN-MODERATE Prescribed by: MERCEDES QUAN on 03/16/18 1205 Hydroxychloroquine Sulfate (Hydroxychloroquine Sulfate) 200 Mg Tablet, 200 MG PO BID, (Reported) Entered as Reported by: CHELSEA CORDOVA on 07/24/15 110 Levothyroxine Sodium (Levothyroxine Sodium) 100 Mcg Tablet, 100 MCG PO DAILY, (Reported) Entered as Reported by: CHELSEA CORDOVA on 03/15/18 151 Magnesium Oxide (Magnesium Oxide) 400 Mg Tablet, 400 MG PO DAILY, (Reported) Entered as Reported by: CHELSEA CORDOVA on 07/24/15 110 Methylphenidate HCl (Methylphenidate HCl) 5 Mg Tablet, 5 MG PO BID, (Reported) Entered as Reported by: CHELSEA CORDOVA on 03/15/18 151 Naproxen (Naprosyn) 500 Mg Tablet, 500 MG PO BID, (Reported) Entered as Reported by: CHELSEA CORDOVA on 03/15/18 1513 Nebivolol HCl (Bystolic) 10 Mg Tab, 10 MG PO DAILY, (Reported) Entered as Reported by: CHELSEA CORDOVA on 03/15/18 1513 Nitrofurantoin Monohyd/M-Cryst (Macrobid 100 mg Capsule) 100 Mg Capsule, 1 TAB PO BID Prescribed by: MERCEDES QUAN on 03/16/18 1205 Ondansetron (Ondansetron Odt) 4 Mg Tab.rapdis, 4 MG SL Q4H PRN for NAUSEA/VOMITING Prescribed by: EV JAVIER on 04/25/22 1221 Oxymetazoline HCl (Afrin) 0.05 % Mist, 1 SPRAY NSEACH BID Prescribed by: EV JAVIER on 04/25/22 1221 Potassium Chloride (Potassium Chloride) 20 Meq Tablet.er, 20 MEQ PO DAILY, (Reported) Entered as Reported by: CHELSEA CORDOVA on 07/24/15 1108 Progesterone,Micronized (Progesterone) 100 Mg Capsule, 100 MG PO DAILY, (Reported) Entered as Reported by: CHELSEA CORDOVA on 03/15/18 151 Tamsulosin HCl (Flomax) 0.4 Mg Cap, 0.4 MG PO DAILY Prescribed by: MERCEDES QUAN on 03/16/18 1205 Review of Systems Review of Systems Constitutional: malaise EENTM: see HPI Respiratory: see HPI Cardiovascular: other (Tachycardia and hypertension) Gastrointestinal: no symptoms reported Genitourinary: no symptoms reported Musculoskeletal: see HPI Skin: no symptoms reported Psychiatric/Neurological: No Symptoms Reported Hematologic/Lymphatic: No Symptoms Reported Immunological/Allergic: see HPI Past Kuluedx-Wcnkqa-Gwzhrd Hx Patient Social History Tobacco Use?: No Substance use?: No Alcohol Use?: No Pt feels they are or have been: No Immunizations Up To Date Tetanus Booster (TDap): Unknown Influenza Vaccine Up-to-Date: No; Not Current First/Initial COVID19 Vaccinat: y Second COVID19 Vaccination Dk: y Seasonal Allergies Seasonal Allergies: No Past Medical History Surgery/Hospitalization HX: HYST, , APPY Surgeries: Yes (D&C) Section, Hysterectomy, Oophorectomy Respiratory: Yes Asthma Cardiac: Yes Heart Murmur, Hypertension Neurological: No Reproductive Disorders: No 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 Sexually Transmitted Disease: No HIV/AIDS: No Genitourinary: Yes Kidney Stones Gastrointestinal: Yes (CELIAC DISEASE) Musculoskeletal: Yes Arthritis, Rheumatoid Arthritis, Chronic Back Pain Endocrine: Yes (BEN) Hypothyroidsim Loss of Vision: Bilateral Hearing Impairment: Denies Cancer: No Psychosocial: Yes Anxiety Integumentary: No Blood Disorders: No (HX ANEMIA) Adverse Reaction/Blood Tranf: No (N/A) Family Medical History Arthritis 19 MOTHER grandparents Cataracts 19 MOTHER Dementia grandparents Hypertension 19 MOTHER Thyroid disease 19 MOTHER Physical Exam Vital Signs Vital Signs - First Documented 04/25/22 08:55 Temp 36.0 Pulse 121 Resp 22 B/P (MAP) 192/113 (139) Pulse Ox 100 Capillary Refill : Less Than 3 Seconds Height, Weight, BMI Height: 5'5.00" Weight: 190lbs. 3.0oz. [id number]; 30.00 BMI Method:Stated General Appearance: WD/WN, Anxious HEENT: PERRL/EOMI, Normal ENT Inspection, Pharyngeal Erythema, TM Abnormal (L) (Erythematous without purulent effusion) Neck: Normal Inspection; No JVD Respiratory: Lungs Clear, Normal Breath Sounds, No Accessory Muscle Use Cardiovascular: No Edema, No Murmur, Tachycardia Gastrointestinal: Non Tender, Soft Extremity: Normal Inspection, Non Tender, No Calf Tenderness, No Pedal Edema Neurologic/Psychiatric: Alert, Oriented x3, No Motor/Sensory Deficits, sand temperer II- XII Norm as Tested, Other (Mildly) Skin: Normal Color, Warm/Dry Progress/Results/Core Measures Suspected Sepsis SIRS Temperature: Pulse: 121 Respiratory Rate: 22 Laboratory Tests 04/25/22 09:50: White Blood Count 8.3 Blood Pressure 192 /113 Mean: 139 Laboratory Tests 04/25/22 09:50: Creatinine 0.89, Platelet Count 219, Total Bilirubin 0.4 Results/Orders Lab Results Laboratory Tests Test 04/25/22 09:50 Range/Units White Blood Count 8.3 4.3-11.0 10^3/uL Red Blood Count 4.61 3.80-5.11 10^6/uL Hemoglobin 13.0 11.5-16.0 g/dL Hematocrit 38 35-52 % Mean Corpuscular Volume 83 80-99 fL Mean Corpuscular Hemoglobin 28 25-34 pg Mean Corpuscular Hemoglobin Concent 34 32-36 g/dL Red Cell Distribution Width 14.3 10.0-14.5 % Platelet Count 219 130-400 10^3/uL Mean Platelet Volume 8.9 L 9.0-12.2 fL Immature Granulocyte % (Auto) 0 % Neutrophils (%) (Auto) 74 42-75 % Lymphocytes (%) (Auto) 16 12-44 % Monocytes (%) (Auto) 7 0-12 % Eosinophils (%) (Auto) 2 0-10 % Basophils (%) (Auto) 0 0-10 % Neutrophils # (Auto) 6.1 1.8-7.8 10^3/uL Lymphocytes # (Auto) 1.4 1.0-4.0 10^3/uL Monocytes # (Auto) 0.6 0.0-1.0 10^3/uL Eosinophils # (Auto) 0.2 0.0-0.3 10^3/uL Basophils # (Auto) 0.0 0.0-0.1 10^3/uL Immature Granulocyte # (Auto) 0.0 0.0-0.1 10^3/uL Sodium Level 137 135-145 MMOL/L Potassium Level 4.0 3.6-5.0 MMOL/L Chloride Level 102 98-107 MMOL/L Carbon Dioxide Level 22 21-32 MMOL/L Anion Gap 13 5-14 MMOL/L Blood Urea Nitrogen 11 7-18 MG/DL Creatinine 0.89 0.60-1.30 MG/DL Estimat Glomerular Filtration Rate 81 BUN/Creatinine Ratio 12 Glucose Level 100 70-105 MG/DL Calcium Level 9.7 8.5-10.1 MG/DL Corrected Calcium 9.7 8.5-10.1 MG/DL Total Bilirubin 0.4 0.1-1.0 MG/DL Aspartate Amino Transf (AST/SGOT) 18 5-34 U/L Alanine Aminotransferase (ALT/SGPT) 19 0-55 U/L Alkaline Phosphatase 80 40-136 U/L C-Reactive Protein High Sensitivity 5.02 H 0.00-0.50 MG/DL B-Type Natriuretic Peptide < 10.0 <100.0 PG/ML Total Protein 7.6 6.4-8.2 GM/DL Albumin 4.0 3.2-4.5 GM/DL Thyroid Stimulating Hormone (TSH) 7.92 H 0.35-4.94 UIU/ML Free Thyroxine 0.97 0.70-1.48 NG/DL Influenza Type A (RT-PCR) Not Detected Not Detecte Influenza Type B (RT-PCR) Not Detected Not Detecte SARS-CoV-2 RNA (RT-PCR) Detected H Not Detecte Group A Streptococcus Screen NEGATIVE NEGATIVE My Orders Orders - EV SAPP MD Cbc With Automated Diff (04/25/22 09:14) Comprehensive Metabolic Panel (04/25/22 09:14) Thyroid Stimulating Hormone (04/25/22 09:14) Ed Iv/Invasive Line Start (04/25/22 09:14) Free T4 (Free Thyroxine) (04/25/22 09:14) Chest 1 View, Ap/Pa Only (04/25/22 09:15) Bnp Iron (04/25/22 09:15) Hs C Reactive Protein (04/25/22 09:27) Rapid Strep A Screen (04/25/22 09:27) Covid 19 Inhouse Test (04/25/22 09:27) Influenza A And B By Pcr (04/25/22 09:27) Rx-Nirmatrelvir/Ritonavir(Eua) (Rx-Paxlo (04/25/22 11:00) Vital Signs/I&O 04/25/22 04/25/22 08:55 12:30 Temp 36.0 36.0 Pulse 121 88 Resp 22 22 B/P (MAP) 192/113 (139) 139/82 Pulse Ox 100 100 Capillary Refill : Less Than 3 Seconds Blood Pressure Mean: 139 Progress Note #1: Time: 09:25 Progress Note Patient was interviewed and examined. Since she had COVID-19 within the past month, we will check for other possible causes of her symptoms including influen za. We will repeat the COVID-19 test as well to validate her home test. I am also ordering a strep test and a chest x-ray. She took phenylephrine around 0500 and Bystolic around 0800. We will monitor her blood pressure during her stay. It is starting to trend down and will hopefully continue that trend as Bystolic effect starts and phenylephrine effect wears off. Progress Note #2: Progress Note Patient remained stable throughout her ER stay. Oxygen saturation remained at or near 100%. She was not in distress. Work-up was relatively unremarkable except for positive COVID-19 test. In absence of other explanation for her symptoms, the possibility of reinfection is within the differential. Patient did well with Paxlovid previously and would like to take it again. Paxlovid was dispensed in the ER. See discharge instructions for more discussion. Diagnostic Imaging Diagonstic Imaging: Xray Plain Films/CT/US/NM/MRI: chest Comments Chest x-ray reviewed by me and report reviewed. I did not appreciate any acute abnormalities. Radiologist's report also did not report any acute abnormalities. Departure Impression Primary Impression: COVID-19 Additional Impressions: Nasal congestion Hypertension Qualified Codes: I10 - Essential (primary) hypertension Left otitis media Qualified Codes: H65.192 - Other acute nonsuppurative otitis media, left ear Disposition: HOME, SELF-CARE Condition: Stable Departure-Patient Inst. Decision time for Depature: 12:12 Referrals: SIMI KAPLAN DO (PCP) Primary Care Physician KO KAPLAN DNP (Family) Primary Care Physician Patient Instructions: COVID-19 ED, High Blood Pressure ED, Nirmatrelvir and Ritonavir FDA Fact Sheet Add. Discharge Instructions: You are to remain in quarantine for 5 full days starting with the first full day of COVID symptoms. Then mask for an additional 5 days after that when you are around others. Close contact should also mask for 10 days after their last exposure to you. Drink plenty of clear liquids to stay well-hydrated and eat a well-balanced diet. If possible, obtain a pulse oximeter and check your pulse ox a couple of times a day or anytime you feel more short of breath. If you have any oxygen saturations less than 90% or multiple oxygen saturations less than 92%, return to the emergency room. Remain active walking around the house and changing positions often. This will help prevent complications from COVID-19 such as pneumonia and blood clots. If possible, intermittently laying on your stomach also helps with breathing and oxygenation. Take a multivitamin if tolerated. Complete the entire course of Paxlovid. Do not stop early even if you are improving. Use Zofran as prescribed if you develop nausea or vomiting. Do not use any oral stimulants such as oral decongestants, diet pills, energy drinks, excessive caffeine, appetite suppressants, etc. The stimulants may worsen your high blood pressure. If your blood pressure is still significantly high with the top number greater than 150 or the bottom number greater than 100 by mid afternoon, consider adding an additional Bystolic 10 mg to total 20 mg/day. Follow-up with your primary care provider next week for a blood pressure check. For your nasal congestion you may use Flonase (fluticasone) 2 sprays per nostril twice daily. You may also use Afrin for a maximum of 3 days for more immediate relief of congestion. Tylenol and ibuprofen may be used for pain or fever. Tylenol (acetaminophen) up to 1000 mg every 6 hours and ibuprofen up to 600 mg every 6 hours may be alternated or used in combination. Return to care if you have any other worsening of symptoms that needs prompt evaluation. All discharge instructions reviewed with patient and/or family. Voiced understanding. Scripts Oxymetazoline HCl (Afrin) 0.05 % Mist 1 SPRAY NSEACH BID for 3 Days, #1 EA Prov: EV SAPP MD 04/25/22 Fluticasone Propionate (Flonase Allergy Relief) 50 Mcg/Actuation Burchard.susp 2 SPRAY NSEACH BID, #1 EACH 2 SPRAYS PER NOSTRIL DAILY X 2 DAYS THEN 1 SPRAY DAILY Prov: EV SAPP MD 04/25/22 Amoxicillin (Amoxicillin) 500 Mg Capsule 1000 MG PO BID, #40 CAP 0 Refills Prov: EV SAPP MD 04/25/22 Ondansetron (Ondansetron Odt) 4 Mg Tab.rapdis 4 MG SL Q4H PRN for NAUSEA/VOMITING, #10 TAB Prov: EV SAPP MD 04/25/22 Copy Copies To 1: SIMI KAPLAN JOSHUA T MD Apr 25, 2022 09:21
--- NOTE | 2022-04-25 09:46 | Diagnostic Imaging Report ---
INDICATION: Persistent cough and shortness of air. Time of Exam: 9:28 AM Comparison is made with prior chest of 11/12/2020. FINDINGS: The heart size is normal. The pulmonary vascularity is unremarkable. The lungs are clear. No infiltrate, effusion or pneumothorax is detected. IMPRESSION: No acute cardiopulmonary process is detected. Dictated by: Dictated on workstation # [id number]
[2022-04-25 10:05] LABS: BASOPHILS % (AUTO) 0 % (0-10); EOSINOPHILS # (AUTO) 0.2 10^3/uL (0.0-0.3); EOSINOPHILS % (AUTO) 2 % (0-10); HEMATOCRIT 38 % (35-52); LYMPHOCYTES # (AUTO) 1.4 10^3/uL (1.0-4.0); LYMPHOCYTES % (AUTO) 16 % (12-44); MEAN CORPUSCULAR HEMOGLOBIN 28 pg (25-34); MEAN CORPUSCULAR HGB CONC 34 g/dL (32-36); MEAN CORPUSCULAR VOLUME 83 fL (80-99); MEAN PLATELET VOLUME 8.9 fL (9.0-12.2); MONOCYTES # (AUTO) 0.6 10^3/uL (0.0-1.0); MONOCYTES % (AUTO) 7 % (0-12); NEUTROPHILS # (AUTO) 6.1 10^3/uL (1.8-7.8); NEUTROPHILS % (AUTO) 74 % (42-75); PLATELET COUNT 219 10^3/uL (130-400); WHITE BLOOD COUNT 8.3 10^3/uL (4.3-11.0)
[2022-04-25 10:33] LABS: BILIRUBIN,TOTAL 0.4 MG/DL (0.1-1.0); CALCIUM 9.7 MG/DL (8.5-10.1); CREATININE SERUM 0.89 MG/DL (0.60-1.30); TOTAL PROTEIN 7.6 GM/DL (6.4-8.2)
[2022-04-25 10:53] LABS: FREE T4 (FREE THYROXINE) 0.97 NG/DL (0.70-1.48)
[2022-04-25] MEDS ORDERED: RX-NIRMATRELVIR/RITONAVIR (PAXLOVID) #30 TABS PO SCH (11:00)
[2022-04-25] MEDS ORDERED: OXYM15MI4 NSEACH (12:21)
[2022-04-25] MEDS ORDERED: AMOX500C2 PO (12:21)
[2022-04-25] MEDS ORDERED: FLUT9.9S NSEACH (12:21)
[2022-04-25] MEDS ORDERED: ONDA4TAB11 SL (12:21)
[2022-04-25 12:30] VITALS: BP 139/82
== END 2022-04-25 12:30 ==
LOC: EDUNIT# 08:51 → ER 08:53
DX: U07.1 COVID-19 (principal); I10 Essential (primary) hypertension; H66.92 Otitis media, unspecified, left ear; R09.81 Nasal congestion; R05.9 Cough, unspecified; Z86.16 Personal history of COVID-19
CPT/HCPCS: 36415; 71045; 80053; 83880; 84439; 84443; 85025; 86141; 87430; 87636